=== PATIENT | female | born 1945 | race Caucasian/White ===

== ENCOUNTER 2017-10-12 05:58 | Emergency (ER) | payer MEDICARE, OTHER ==
[2017-10-12 06:38] LABS: ADD MAN DIFF? NO
[2017-10-12 06:41] LABS: WHITE BLOOD COUNT 7.3 10^3/ul (4.8-10.8)
[2017-10-12 06:41] LABS: BASOPHIL # 0.1 10^3/ul (0.0-0.1); BASOPHILS % 0.7 % (0.0-2.0); EOSINOPHILS # 0.1 10^3/ul (0.0-0.5); EOSINOPHILS % 1.1 % (0.0-7.0); HEMATOCRIT 40.6 % (37.0-47.0); HEMOGLOBIN 13.2 g/dl (12.0-16.0); LYMPHOCYTES # 1.1 10^3/ul (0.8-2.9); LYMPHOCYTES % 14.6 % (15.0-51.0); MEAN CORPUSCULAR HEMOGLOBIN 30.6 pg (29.0-33.0); MEAN CORPUSCULAR HGB CONC 32.5 g/dl (32.0-37.0); MEAN PLATELET VOLUME 10.8 fl (7.4-10.4); MONOCYTE # 0.4 10^3/ul (0.3-0.9); MONOCYTES % 5.9 % (0.0-11.0); NEUTROPHIL # 5.6 10^3/ul (1.6-7.5); NEUTROPHILS % 77.3 % (39.0-77.0); PLATELET COUNT 198 10^3/UL (140-415); RED BLOOD COUNT 4.32 10^6/ul (4.20-5.40); RED CELL DISTRIBUTION WIDTH 12.7 % (11.5-14.5)
[2017-10-12] MEDS: LORAZEPAM 2 MG INJ IV (06:51)
[2017-10-12 07:00] LABS: ANION GAP 19 (8-16); BLOOD UREA NITROGEN 18 mg/dl (7-20); CALCIUM 10.1 mg/dl (8.4-10.2); CARBON DIOXIDE 31 mmol/L (21-31); CHLORIDE 98 mmol/L (97-110); CREATININE 0.63 mg/dl (0.44-1.00); GLUCOSE 356 mg/dl (70-220); POTASSIUM 3.8 mmol/L (3.5-5.1); SODIUM 144 mmol/L (135-144)
[2017-10-12 07:11] LABS: TROPONIN-I 0.017 ng/ml (0.000-0.120)
== END 2017-10-12 09:12 | disposition home or self-care (01) ==
LOC: E/R 05:58
DX: D32.9 Benign neoplasm of meninges, unspecified (principal); I10 Essential (primary) hypertension; R11.2 Nausea with vomiting, unspecified; E11.9 Type 2 diabetes mellitus without complications; Z79.4 Long term (current) use of insulin; Z79.82 Long term (current) use of aspirin
CPT/HCPCS: 36415; 70450; 71045; 80048; 84484; 85025; 96374; 99285-25

== ENCOUNTER 2017-10-17 15:46 | Observation (INO) | payer MEDICARE, OTHER ==
[2017-10-17 16:06] LABS: ADD MAN DIFF? NO
[2017-10-17 16:10] LABS: BASOPHIL # 0.1 10^3/ul (0.0-0.1); BASOPHILS % 0.6 % (0.0-2.0); EOSINOPHILS # 0.1 10^3/ul (0.0-0.5); EOSINOPHILS % 1.7 % (0.0-7.0); HEMATOCRIT 39.8 % (37.0-47.0); LYMPHOCYTES # 2.2 10^3/ul (0.8-2.9); LYMPHOCYTES % 26.6 % (15.0-51.0); MEAN CORPUSCULAR HEMOGLOBIN 30.9 pg (29.0-33.0); MEAN CORPUSCULAR HGB CONC 32.7 g/dl (32.0-37.0); MEAN CORPUSCULAR VOLUME 94.5 fl (82.0-101.0); MEAN PLATELET VOLUME 10.7 fl (7.4-10.4); MONOCYTE # 0.6 10^3/ul (0.3-0.9); MONOCYTES % 6.8 % (0.0-11.0); NEUTROPHIL # 5.4 10^3/ul (1.6-7.5); NEUTROPHILS % 63.9 % (39.0-77.0); PLATELET COUNT 254 10^3/UL (140-415); RED BLOOD COUNT 4.21 10^6/ul (4.20-5.40); RED CELL DISTRIBUTION WIDTH 12.7 % (11.5-14.5)
[2017-10-17 16:10] LABS: WHITE BLOOD COUNT 8.4 10^3/ul (4.8-10.8)
[2017-10-17] MEDS: SOD CHLORIDE 0.9% 1,000 ML IV ×2 (16:10→21:21)
[2017-10-17 16:20] LABS: MODE NASAL CANNULA; MetHgb Venous 0.1 %; Sample Type Blood venous; Site VENOUS LINE; Venous COHb 0.5 %; Venous Oxygen Sat 91.5 mmHG (55.0-75.0); Venous Total Hemglobin 13.9 g/dl
[2017-10-17 16:41] LABS: INR 0.97
[2017-10-17 16:42] LABS: PARTIAL THROMBOPLASTIN TIME 33.9 Sec (25.0-35.0)
[2017-10-17 16:50] LABS: ANION GAP 16 (8-16); BLOOD UREA NITROGEN 13 mg/dl (7-20); CALCIUM 9.7 mg/dl (8.4-10.2); CARBON DIOXIDE 30 mmol/L (21-31); CHLORIDE 98 mmol/L (97-110); CREATININE 0.62 mg/dl (0.44-1.00); GLUCOSE 372 mg/dl (70-220); POTASSIUM 3.6 mmol/L (3.5-5.1); SODIUM 140 mmol/L (135-144)
[2017-10-17 17:14] LABS: TROPONIN-I < 0.010 ng/ml (0.000-0.120)
[2017-10-17] MEDS: ASPIRIN 81 MG TAB PO (17:26)
[2017-10-17] MEDS ORDERED: morphine 2 MG INJ IV (18:00)
[2017-10-17] MEDS ORDERED: MAGNESIUM HYDROXIDE 30ML CUP PO (18:00)
[2017-10-17] MEDS ORDERED: BISACODYL (EC) 5 MG TAB PO (18:00)
[2017-10-17] MEDS ORDERED: ACETAMINOPHEN 325 MG TAB PO (18:00)
[2017-10-17] MEDS ORDERED: ONDANSETRON 4 MG INJ IV ×2 (18:00)
[2017-10-17] MEDS ORDERED: DOCUSATE SODIUM 100 MG CAP PO (18:00)
[2017-10-17] MEDS ORDERED: LORAZEPAM 0.5 MG TAB PO (18:00)
[2017-10-17] MEDS ORDERED: NACL 0.9% 3 ML SYG IV (18:00)
[2017-10-17] MEDS ORDERED: DEXTROSE 50% 50 ML SYRINGE IV ×2 (18:30)
[2017-10-17] MEDS ORDERED: GLUCAGON 1 MG INJ IM (18:30)
[2017-10-17] MEDS ORDERED: GLUCOSE GEL 15 GRAM TUBE PO ×2 (18:30)
[2017-10-17] MEDS ORDERED: GLUCOSE GEL 15 GRAM TUBE BUCCAL (18:30)
[2017-10-17 18:38] LABS: B-TYPE NATRIURETIC PEPTIDE 116 PG/ML (0-125)
[2017-10-17 18:42] LABS: ADD UMIC NO; UR ASCORBIC ACID NEGATIVE (NEGATIVE); UR BILIRUBIN (Dip) NEGATIVE (NEGATIVE); UR BLOOD (Dip) NEGATIVE (NEGATIVE); UR CLARITY CLEAR (CLEAR); UR COLOR YELLOW (YELLOW); UR GLUCOSE (Dip) 3+ mg/dL (NEGATIVE); UR KETONES (Dip) NEGATIVE (NEGATIVE); UR LEUKOCYTE ESTERASE (Dip) NEGATIVE Leu/ul (NEGATIVE); UR NITRITE (Dip) NEGATIVE (NEGATIVE); UR SPECIFIC GRAVITY (Dip) 1.022 (1.003-1.030); UR TOTAL PROTEIN (Dip) NEGATIVE (NEGATIVE); UR UROBILINOGEN (Dip) NEGATIVE (NEGATIVE)
[2017-10-17] MEDS: INSULIN ASPART [NOVOLOG] 3 ML PEN SC (21:25)
[2017-10-17] MEDS: INSULIN GLARGINE [LANtus] 3 ML PEN SC (21:26)
[2017-10-17] MEDS: HEPARIN 5,000 UNIT/0.5 ML VIAL SC (21:27)
[2017-10-17] MEDS: ROSUVASTATIN CALCIUM 40 MG TABLET PO (21:28)
[2017-10-18] MEDS: HYDROCODONE/APAP (5/325) TAB PO (00:40)
[2017-10-18 00:59] LABS: CREATINE KINASE 57 IU/L (23-200)
[2017-10-18 01:14] LABS: CK INDEX 2.5; CK-MB 1.42 ng/ml (0.0-2.4); TROPONIN-I 0.014 ng/ml (0.000-0.120)
[2017-10-18] MEDS: ACCU-CHEK XX (02:00)
[2017-10-18] MEDS: SOD CHLORIDE 0.9% 1,000 ML IV (03:40)
[2017-10-18] MEDS: HEPARIN 5,000 UNIT/0.5 ML VIAL SC ×3 (06:43→21:32)
[2017-10-18] MEDS ORDERED: NON-FORMULARY/PATIENT OWN MED (Dexlansoprazole (Dexilant) 60 MG) PO (09:00)
[2017-10-18] MEDS ORDERED: NON-FORMULARY/PATIENT OWN MED (Linaclotide (Linzess) 145 MCG) PO (09:00)
[2017-10-18] MEDS: INSULIN ASPART [NOVOLOG] 3 ML PEN SC ×7 (09:04→20:05)
[2017-10-18] MEDS: LOSARTAN 50 MG TAB PO (09:04)
[2017-10-18] MEDS: ASPIRIN 81 MG TAB PO (09:07)
[2017-10-18 09:11] LABS: ADD MAN DIFF? NO
[2017-10-18 09:20] LABS: BASOPHILS % 0.5 % (0.0-2.0); EOSINOPHILS # 0.2 10^3/ul (0.0-0.5); EOSINOPHILS % 3.2 % (0.0-7.0); HEMATOCRIT 38.1 % (37.0-47.0); HEMOGLOBIN 12.1 g/dl (12.0-16.0); LYMPHOCYTES # 1.8 10^3/ul (0.8-2.9); LYMPHOCYTES % 31.3 % (15.0-51.0); MEAN CORPUSCULAR HEMOGLOBIN 30.4 pg (29.0-33.0); MEAN CORPUSCULAR HGB CONC 31.8 g/dl (32.0-37.0); MEAN CORPUSCULAR VOLUME 95.7 fl (82.0-101.0); MEAN PLATELET VOLUME 10.9 fl (7.4-10.4); MONOCYTE # 0.4 10^3/ul (0.3-0.9); MONOCYTES % 7.3 % (0.0-11.0); NEUTROPHIL # 3.2 10^3/ul (1.6-7.5); NEUTROPHILS % 57.3 % (39.0-77.0); PLATELET COUNT 220 10^3/UL (140-415); RED BLOOD COUNT 3.98 10^6/ul (4.20-5.40); RED CELL DISTRIBUTION WIDTH 12.6 % (11.5-14.5)
[2017-10-18 09:20] LABS: WHITE BLOOD COUNT 5.7 10^3/ul (4.8-10.8)
[2017-10-18 09:29] LABS: HEMOGLOBIN A1C 11.8 % (0-5.9)
[2017-10-18 09:33] LABS: CREATINE KINASE 54 IU/L (23-200)
[2017-10-18 09:40] LABS: ALANINE AMINOTRANSFERASE 56 IU/L (13-69); ALBUMIN 3.4 g/dl (3.3-4.9); ALBUMIN/GLOBULIN RATIO 1.21; ALKALINE PHOSPHATASE 39 IU/L (42-121); ANION GAP 13 (8-16); ASPARTATE AMINO TRANSFERASE 43 IU/L (15-46); BILIRUBIN,INDIRECT 0.6 mg/dl (0-1.1); BILIRUBIN,TOTAL 0.6 mg/dl (0.2-1.3); BLOOD UREA NITROGEN 8 mg/dl (7-20); CARBON DIOXIDE 33 mmol/L (21-31); CHLORIDE 100 mmol/L (97-110); CREATININE 0.46 mg/dl (0.44-1.00); GLUCOSE 180 mg/dl (70-220); MAGNESIUM 1.5 mg/dl (1.7-2.5); POTASSIUM 3.8 mmol/L (3.5-5.1); SODIUM 142 mmol/L (135-144); TOTAL PROTEIN 6.2 g/dl (6.1-8.1)
[2017-10-18 09:44] LABS: CK INDEX 2.4; CK-MB 1.32 ng/ml (0.0-2.4); TROPONIN-I 0.011 ng/ml (0.000-0.120)
[2017-10-18] MEDS: [UNRECOGNIZED DRUG - REMARK] XX (10:56)
[2017-10-18] MEDS: MAGNESIUM SULFATE 2 GM/50 ML 50 ML IVPB (12:17)
[2017-10-18] MEDS: PANTOPRAZOLE (EC) 40 MG TAB PO (12:17)
[2017-10-18] MEDS: MEMANTINE 10 MG TAB PO ×2 (13:55→20:03)
[2017-10-18] MEDS: metFORMIN 500 MG TAB PO (17:09)
[2017-10-18] MEDS: LINAGLIPTIN 5 MG TABLET PO (17:09)
[2017-10-18] MEDS ORDERED: INSULIN ASPART [NOVOLOG] 3 ML PEN SC (17:55)
[2017-10-18] MEDS: ACETAMINOPHEN 325 MG TAB PO (19:25)
[2017-10-18] MEDS ORDERED: INSULIN GLARGINE [LANtus] 3 ML PEN SC (20:00)
[2017-10-18] MEDS: ROSUVASTATIN CALCIUM 40 MG TABLET PO (20:03)
[2017-10-18] MEDS: INSULIN GLARGINE [LANtus] 3 ML PEN SC (20:07)
[2017-10-19] MEDS: hydrALAzine 20 MG INJ IV ×2 (00:32→04:39)
[2017-10-19] MEDS: ACCU-CHEK XX (01:46)
[2017-10-19] MEDS: ACETAMINOPHEN 325 MG TAB PO (04:46)
[2017-10-19] MEDS: PANTOPRAZOLE (EC) 40 MG TAB PO (05:34)
[2017-10-19] MEDS: HEPARIN 5,000 UNIT/0.5 ML VIAL SC (05:36)
[2017-10-19] MEDS: metFORMIN 500 MG TAB PO (07:55)
[2017-10-19 08:31] LABS: ADD MAN DIFF? NO
[2017-10-19 08:36] LABS: WHITE BLOOD COUNT 7.2 10^3/ul (4.8-10.8)
[2017-10-19 08:36] LABS: BASOPHILS % 0.6 % (0.0-2.0); EOSINOPHILS # 0.1 10^3/ul (0.0-0.5); EOSINOPHILS % 1.7 % (0.0-7.0); HEMATOCRIT 38.7 % (37.0-47.0); HEMOGLOBIN 12.5 g/dl (12.0-16.0); LYMPHOCYTES # 1.8 10^3/ul (0.8-2.9); LYMPHOCYTES % 25.1 % (15.0-51.0); MEAN CORPUSCULAR HEMOGLOBIN 30.3 pg (29.0-33.0); MEAN CORPUSCULAR HGB CONC 32.3 g/dl (32.0-37.0); MEAN CORPUSCULAR VOLUME 93.7 fl (82.0-101.0); MEAN PLATELET VOLUME 10.9 fl (7.4-10.4); MONOCYTE # 0.5 10^3/ul (0.3-0.9); MONOCYTES % 6.6 % (0.0-11.0); NEUTROPHIL # 4.7 10^3/ul (1.6-7.5); NEUTROPHILS % 65.7 % (39.0-77.0); PLATELET COUNT 237 10^3/UL (140-415); RED BLOOD COUNT 4.13 10^6/ul (4.20-5.40); RED CELL DISTRIBUTION WIDTH 12.7 % (11.5-14.5)
[2017-10-19 08:59] LABS: ANION GAP 12 (8-16); BLOOD UREA NITROGEN 10 mg/dl (7-20); CALCIUM 9.4 mg/dl (8.4-10.2); CARBON DIOXIDE 32 mmol/L (21-31); CHLORIDE 100 mmol/L (97-110); CREATININE 0.51 mg/dl (0.44-1.00); GLUCOSE 238 mg/dl (70-220); MAGNESIUM 1.8 mg/dl (1.7-2.5); PHOSPHORUS 3.1 mg/dl (2.5-4.9); POTASSIUM 3.9 mmol/L (3.5-5.1); SODIUM 140 mmol/L (135-144)
[2017-10-19] MEDS: INSULIN ASPART [NOVOLOG] 3 ML PEN SC ×2 (09:09)
[2017-10-19] MEDS: LOSARTAN 50 MG TAB PO (09:25)
[2017-10-19] MEDS: ASPIRIN 81 MG TAB PO (09:25)
[2017-10-19] MEDS: MEMANTINE 10 MG TAB PO (09:26)
[2017-10-19] MEDS: LINAGLIPTIN 5 MG TABLET PO (09:26)
[2017-10-19] MEDS ORDERED: AMLODIPINE 5 MG TAB PO (10:00)
[2017-10-19] MEDS ORDERED: ALBUTEROL/IPRATROPIUM (NEB) 3 ML AMP HHN ×2 (10:30→14:00)
[2017-10-19] MEDS ORDERED: FUROSEMIDE 40 MG INJ IV (10:30)
[2017-10-19] MEDS ORDERED: INSULIN ASPART [NOVOLOG] 3 ML PEN SC (11:50)
[2017-10-19] MEDS ORDERED: metFORMIN 500 MG TAB PO (17:55)
[2017-10-20] MEDS ORDERED: FUROSEMIDE 20 MG TAB PO (06:00)
== END 2017-10-19 11:47 | disposition left against medical advice (07) ==
LOC: E/R 15:46 → TEL 17:42
PROVIDERS: Internal Medicine
DX: R53.1 Weakness (principal); R55 Syncope and collapse; D32.9 Benign neoplasm of meninges, unspecified; E11.9 Type 2 diabetes mellitus without complications; I10 Essential (primary) hypertension; F03.90 Unspecified dementia, unspecified severity, without behavioral disturbance, psychotic disturbance, mood disturbance, and anxiety; Z79.84 Long term (current) use of oral hypoglycemic drugs; Z79.4 Long term (current) use of insulin; Z87.891 Personal history of nicotine dependence; Z83.3 Family history of diabetes mellitus
CPT/HCPCS: 36415; 70450; 70551; 71045; 80048; 80053; 81003; 82550; 82553; 82803; 82962; 83036; 83735; 83880; 84100; 84484; 85025; 85610; 85730; 93005; 93306; 96372; 99285-25; G0378

== ENCOUNTER 2018-11-22 10:48 | Emergency (ER) | payer MEDICARE, OTHER ==
[2018-11-22] MEDS: ACETAMINOPHEN 500 MG TAB PO (12:19)
[2018-11-22] MEDS: ONDANSETRON 4 MG INJ IV (14:58)
[2018-11-22] MEDS: morphine 4 MG/ML VIAL IV (14:58)
[2018-11-22 15:13] LABS: ADD MAN DIFF? NO
[2018-11-22 15:16] LABS: BASOPHIL # 0.1 10^3/ul (0.0-0.1); BASOPHILS % 0.5 % (0.0-2.0); EOSINOPHILS # 0.2 10^3/ul (0.0-0.5); EOSINOPHILS % 1.3 % (0.0-7.0); HEMATOCRIT 36.6 % (37.0-47.0); HEMOGLOBIN 11.8 g/dl (12.0-16.0); LYMPHOCYTES # 1.8 10^3/ul (0.8-2.9); LYMPHOCYTES % 15.2 % (15.0-51.0); MEAN CORPUSCULAR HEMOGLOBIN 28.6 pg (29.0-33.0); MEAN CORPUSCULAR HGB CONC 32.2 g/dl (32.0-37.0); MEAN CORPUSCULAR VOLUME 88.6 fl (82.0-101.0); MEAN PLATELET VOLUME 10.6 fl (7.4-10.4); MONOCYTE # 0.7 10^3/ul (0.3-0.9); NEUTROPHIL # 9.2 10^3/ul (1.6-7.5); NEUTROPHILS % 76.7 % (39.0-77.0); PLATELET COUNT 248 10^3/UL (140-415); RED BLOOD COUNT 4.13 10^6/ul (4.20-5.40); RED CELL DISTRIBUTION WIDTH 13.7 % (11.5-14.5)
[2018-11-22 15:16] LABS: WHITE BLOOD COUNT 11.9 10^3/ul (4.8-10.8)
[2018-11-22 15:35] LABS: PROTIME 13.3 Sec (11.9-14.9)
[2018-11-22 15:36] LABS: PARTIAL THROMBOPLASTIN TIME 26.1 Sec (23.0-35.0)
[2018-11-22 15:37] LABS: ALANINE AMINOTRANSFERASE 35 IU/L (13-69); ALBUMIN 4.2 g/dl (3.3-4.9); ALBUMIN/GLOBULIN RATIO 1.07; ALKALINE PHOSPHATASE 66 IU/L (42-121); ANION GAP 13 (5-13); ASPARTATE AMINO TRANSFERASE 38 IU/L (15-46); BILIRUBIN,INDIRECT 0.8 mg/dl (0-1.1); BILIRUBIN,TOTAL 0.8 mg/dl (0.2-1.3); BLOOD UREA NITROGEN 11 mg/dl (7-20); CALCIUM 10.5 mg/dl (8.4-10.2); CARBON DIOXIDE 27 mmol/L (21-31); CHLORIDE 97 mmol/L (97-110); CREATININE 0.53 mg/dl (0.44-1.00); POTASSIUM 4.7 mmol/L (3.5-5.1); SODIUM 137 mmol/L (135-144); TOTAL PROTEIN 8.1 g/dl (6.1-8.1)
[2018-11-22 15:42] LABS: GLUCOSE 427 mg/dl (70-220)
[2018-11-22 15:49] LABS: TROPONIN-I < 0.012 ng/ml (0.000-0.120)
== END 2018-11-22 19:18 | disposition home or self-care (01) ==
LOC: FTE 10:48 → E/R 19:18
DX: S42.291A Other displaced fracture of upper end of right humerus, initial encounter for closed fracture (principal); I10 Essential (primary) hypertension; E11.65 Type 2 diabetes mellitus with hyperglycemia; R42 Dizziness and giddiness; W22.01XA Walked into wall, initial encounter; Y92.009 Unspecified place in unspecified non-institutional (private) residence as the place of occurrence of the external cause; Z79.4 Long term (current) use of insulin
CPT/HCPCS: 70450; 71045; 73030-RT; 73080-RT; 73110-RT; 80053; 82962; 84484; 85025; 85610; 85730; 93005; 96374; 96375; 99285-25